=== PATIENT | male | born 1990 | race Caucasian/White ===

== ENCOUNTER 2018-12-05 15:34 | Emergency (ER) | payer SELFPAY ==
[2018-12-05 16:13] VITALS: BP 116/75
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
== END 2018-12-05 16:34 | disposition home or self-care (01) ==
LOC: UCCORT 15:34
DX: L03.213 Periorbital cellulitis (principal); F17.210 Nicotine dependence, cigarettes, uncomplicated
CPT/HCPCS: 99202; G0463

== ENCOUNTER 2019-07-07 17:00 | Emergency (ER) | payer SELFPAY ==
[2019-07-07 18:10] VITALS: BP 127/70
--- NOTE | 2019-07-07 18:25 | UC ---
Dental HPI - HPI Summary HPI Summary: Patient is a 28yo male presenting with right upper central incisor pain since yesterday. Patient states the tooth is decayed and is now loose because he attempted to pull it out himself yesterday. States today he noticed upper lip swelling. Denies drainage and bleeding. Denies trismus. Denies fever and chills. Denies n/v. Taking tylenol for pain relief. - History of Current Complaint Chief Complaint: UCDentalProblem Stated Complaint: ORAL COMPLAINT Hx Obtained From: Patient Pain Intensity: 5 Pain Scale Used: 0-10 Numeric - Allergies/Home Medications Allergies/Adverse Reactions: Allergies Allergy/AdvReac Type Severity Reaction Status Date / Time No Known Allergies Allergy Verified 07/07/19 18:11 Home Medications: Home Medications Clindamycin Cap(NF) [Clindamycin Cap 300 mg Cap(NF)] 300 mg PO Q6H #28 cap 07/06 [Rx] PMH/Surg Hx/FS Hx/Imm Hx - Surgical History Surgical History: None - Family History Known Family History: Positive: Hypertension - Social History Alcohol Use: Rare Substance Use Type: Marijuana Smoking Status (MU): Heavy Every Day Tobacco Smoker Type: Cigarettes Amount Used/How Often: 1 PPD Household Exposure Type: Cigarettes Review of Systems All Other Systems Reviewed And Are Negative: Yes Constitutional: Positive: Negative ENT: Positive: Dental Pain Respiratory: Positive: Negative Cardiovascular: Positive: Negative Gastrointestinal: Positive: Negative Musculoskeletal: Positive: Negative Neurological/Mental Status: Positive: Negative Physical Exam - Summary Physical Exam Summary: Vital Signs Reviewed: Yes A+Ox3, no distress, well-appearing Eyes: Conjunctiva Clear ENT: Hearing grossly normal Dental exam: overall poor dentition with caries throughout teeth. upper right central incisor loose when touched, with significant decay. surrounding gingival erythema with small 0.5cm fluctuance noted superiorly to the incisor. no drainage or bleeding noted. mild TTP. +mild external upper lip edema without erythema Neck: Positive: Supple, no LAD Respiratory: Positive: No respiratory distress, No accessory muscle use + CTA throughout no w/r Cardiovascular: RRR nl s1, s2 no m/r Musculoskeletal Exam: [place] x 4 without difficulty Neurological: Positive: Alert Psychological: Positive: age appropriate behavior Skin: Positive: no rash, no ecchymosis Vital Signs: Initial Vital Signs Temp 99.3 F 07/07/19 18:06 Pulse 105 07/07/19 18:06 Resp 16 07/07/19 18:06 BP 127/70 07/07/19 18:06 Pulse Ox 98 07/07/19 18:06 Dental Complaint Course/Dx - Course Course Of Treatment: Discussed dental abscess with patient. Patient declined drainage of the abscess. I treated the patient with clindmycin and instructed to take probiotic to avoid c diff. Instructed to perform salt water gargles and apply warm compresses. Instructed to take otc analgesics as well. I educated on s/s of worsening infection and instructed to go to ED if any occur. Patient voiced understanding and agreed with treatment plan. - Differential Dx/Diagnosis Differential Diagnosis/Dx: Dental Abscess, Dental Caries, Gingivitis Provider Diagnosis: Dental abscess Discharge ED - Sign-Out/Discharge Documenting (check all that apply): Patient Departure All imaging exams completed and their final reports reviewed: No Studies - Discharge Plan Condition: Stable Disposition: HOME Prescriptions: Clindamycin Cap(NF) [Clindamycin Cap 300 mg Cap(NF)] 300 mg PO Q6H #28 cap Patient Education Materials: Dental Abscess (ED) Referrals: No Primary Care Phys,NOPCP [Primary Care Provider] - Additional Instructions: Take clindamycin as prescribed for your dental abscess. Finish the entire course even if feeling better. This medication has the potential to cause an infectious diarrhea called C. diff. It is recommended that you take an over the counter probiotic or eat swazi yogurt to help prevent this. Perform warm salt water gargles every couple of hours and after eating. Apply warm compresses to the gums/lip 2-3 times daily as well. Eat soft foods and brush at least twice daily with a soft bristle brush. Go to the emergency room if you experience new or worsening symptoms that we discussed. - Billing Disposition and Condition Condition: STABLE Disposition: Home - Attestation Statements Provider Attestation: Chart has been reviewed. I did not see the patient but was available for consult. GAIL.
== END 2019-07-07 18:55 | disposition home or self-care (01) ==
LOC: UCCORT 17:00
DX: K04.7 Periapical abscess without sinus (principal); F17.210 Nicotine dependence, cigarettes, uncomplicated
CPT/HCPCS: 99212; G0463